=== PATIENT | female | born 2000 | race Caucasian/White ===

== ENCOUNTER 2021-01-02 18:04 | Emergency (ER) | payer OTHER, SELFPAY ==
--- NOTE | ~2021-01-02 | XR_ITS ---
XR chest 2V DATE: 01/02/2021 18:57 INDICATION: Midsternal chest pressure, shortness of breath TECHNIQUE: PA and lateral views COMPARISON: 09/15/2012 PA and lateral chest FINDINGS: Normal heart size. No hilar or mediastinal enlargement. No pulmonary infiltrate or consolidation, pleural effusion or pulmonary vascular congestion or pneumo thorax. Included skeletal structures are unremarkable. IMPRESSION: Negative chest Reviewed, dictated and finalized at location A. IMPRESSION: Negative chest
--- NOTE | ~2021-01-02 | CT_ITS ---
EXAMINATION: CTA chest PE protocol DATE: 01/02/2021 22:23 INDICATION: Shortness of breath TECHNIQUE: Computed tomography angiography (CTA) of the chest was performed with 100 mL Omnipaque-350 intravenous contrast timed to evaluate the pulmonary arteries. Coronal maximum intensity projection 3D-reconstructions were created by the technologist. Automated exposure control and iterative reconst ruction technique were employed. Exam dose: 143.68 mGy-cm total exam DLP. COMPARISON: 01/02/2021 2 view chest FINDINGS: There is diagnostic contrast enhancement of the pulmonary arteries and no evidence of pulmo nary embolism. No thoracic aortic aneurysm or dissection. No hilar or mediastinal mass lesion or lymphadenopathy. Normal heart size. No pericardial or pleural effusion. The lungs are clear of infiltrate or consolidation. Included skeletal structures are unremarkable. IMPRESSION: No evidence of pulmonary embolism Reviewed, dictated and finalized at [facility]. Reviewed, dictated and finalized at location A.
[2021-01-02 18:26] VITALS: BP 142/74; PULSE 112; RESP 18; TEMP 36.5; O2SAT 99
--- NOTE | 2021-01-02 18:26 | ECG_ITS ---
Measurements Intervals [place] Rate: 94 P: 76 [place]: 141 QRS: 72 QRSD: 84 T: 49 QT: 357 QTc: 447 Interpretive Statements SINUS RHYTHM WITH SINUS ARRHYTHMIA NORMAL ECG Electronically Signed On 01-02-2021 20:01:08 CDT by Brian Arshad D.O.
[2021-01-02 18:45] LABS: Basophils Absolute Auto 0.1 K/mm3 (0.0-0.1); Basophils Percent Auto 0.7 % (0.2-1.2); Eosinophils Absolute Auto 0.1 K/mm3 (0-0.3); Eosinophils Percent Auto 0.4 % (0-4.4); Hematocrit 39.5 % (37.0-47.0); Hemoglobin 13.4 g/dL (12.0-15.0); Immature Granulocyte Absolute 0.05 K/mm3 (0.00-0.031); Immature Granulocyte Percent A 0.4 % (0-0.5); Lymphocytes Absolute Auto 1.56 K/mm3 (0.9-3.2); Lymphocytes Percent Auto 11.6 % (18.3-44.2); Mean Corpuscular HGB Conc 33.9 g/dl (32-36); Mean Corpuscular Hemoglobin 28.8 pg (26-34); Mean Corpuscular Volume 84.9 fl (80-100); Mean Platelet Volume 9.6 fl (7.4-10.4); Monocytes Absolute Auto 0.8 K/mm3 (0.1-0.6); Monocytes Percent Auto 5.9 % (2.6-8.5); Neutrophils Absolute Auto 10.9 K/mm3 (1.3-6.7); Platelet Count Result 231 k/mm3 (150-375); Red Blood Count 4.65 M/mm3 (4.2-5.4); Red Cell Distribution Width 13.2 % (11.5-14.5); White Blood Count 13.5 K/mm3 (4.5-10.0)
[2021-01-02 19:04] LABS: Anion Gap 11 mmol/L (8-16); Blood Urea Nitrogen 15 mg/dL (8-21); Calcium 9.3 mg/dL (8.9-10.7); Carbon Dioxide 22 mmol/L (22-30); Chloride 104 mmol/L (98-107); Estimated CRCL calculation 63 ml/min; Estimated Glomerular Filt Rate > 60; Glucose 116 mg/dL (65-105); Potassium 3.6 mmol/L (3.4-5.0); Sodium 137 mmol/L (134-143)
[2021-01-02 20:26] VITALS: BP 120/77; PULSE 83; RESP 13; O2SAT 100
[2021-01-02 20:33] VITALS: O2SAT 99
--- NOTE | 2021-01-02 21:33 | ED.SOB ---
HPI - SOB/Dyspnea General Chief Complaint: Shortness of Breath/Dyspnea Stated Complaint: sob Time Seen by Provider: 01/02/21 20:14 History of Present Illness HPI Narrative: Patient is a 20-year-old female who presents ER with shortness of breath. Occurred around 4 in the afternoon. Lasted approximately 30 minutes. States she is just sitting in bed and felt like she could not breathe. She had no wheezing or cough. No fevers or chills or sweats. No pain with deep breath. She had no chest pain but thought she might of had some tightness and that her heart was racing. No lightheadedness or dizziness. Lower extremities without swelling and no recent travel or surgery. No symptoms at this time. No previous history of anxiety or anxiety attacks. No new stressors at home/work. Patient is having cramping of her calves bilaterally. Related Data Allergies Allergy/AdvReac Type Severity Reaction Status Date / Time No Known Allergies Allergy Mild Verified 01/08/08 17:17 Review of Systems Review of Systems: All systems reviewed & are unremarkable except as noted in HPI and below Constitutional: Constitutional: Denies chills, Denies fever(s) and Denies weakness ENT: Reports nasal congestion and Denies sore throat Cardiovascular: Cardiovascular: Reports chest pain, Reports rapid heart rate and Denies radiating jaw, neck or arm pain Respiratory: Respiratory: Denies cough, Reports dyspnea and Denies wheezing Gastrointestinal: Gastrointestinal: Denies abdominal pain, Denies diarrhea, Denies nausea and Denies vomiting Musculoskeletal: Musculoskeletal: Denies back pain and Denies muscle cramps PMFSH Past Medical History Medical History (Updated 01/02/21 @ 22:57 by Navdeep Yarbrough MD) Healthy female adult Surgical History Surgical History (Updated 01/02/21 @ 21:35 by Navdeep Yarbrough MD) No history of previous surgery Social History Social History (Updated 01/02/21 @ 21:35 by Navdeep Yarbrough MD) Smoking status: Never smoker Gender identity (if verbalized by the patient): Female Exam Narrative: Exam Narrative: GENERAL: Well-appearing, well-nourished, and in no acute distress. HEAD: Normocephalic, atraumatic.. ENT: Mucous membranes moist. CHEST: Clear to auscultation. No respiratory distress. HEART: Regular rate and rhythm. Normal peripheral pulses. ABDOMEN: Soft, nontender, nondistended. EXTREMITIES: Normal range of motion. No edema. Calf cramping. NEURO: Alert and oriented x3. PSYCH: Normal mood and affect. Course Course Emergency Course: Patient and family informed of results and treatment plan. Patient given one-time dose of Lovenox and will get a ultrasound 7:30 AM to rule out DVT in the lower extremities. Vital Signs Vital signs: Vital Signs Temperature 97.7 F 01/02/21 18:26 Pulse Rate 112 H 01/02/21 18:26 Respiratory Rate 18 01/02/21 18:26 Blood Pressure 142/74 H 01/02/21 18:26 Pulse Oximetry 99 01/02/21 18:26 Temperature 97.7 F 01/02/21 18:26 Pulse Rate 84 01/02/21 22:53 Respiratory Rate 20 01/02/21 22:53 Blood Pressure 127/73 01/02/21 22:53 Pulse Oximetry 94 01/02/21 22:53 MDM - SOB/Dyspnea Lab Data Result diagrams: 01/02/21 18:30 01/02/21 18:30 Labs: Lab Results 01/02/21 01/02/21 01/02/21 Range/Units 18:30 18:30 21:26 WBC 13.5 H (4.5-10.0) K/mm3 RBC 4.65 (4.2-5.4) M/mm3 Hgb 13.4 (12.0-15.0) g/dL Hct 39.5 (37.0-47.0) % MCV 84.9 (80-100) fl MCH 28.8 (26-34) pg MCHC 33.9 (32-36) g/dl RDW 13.2 (11.5-14.5) % Plt Count 231 (150-375) k/mm3 MPV 9.6 (7.4-10.4) fl Immature Gran % (Auto) 0.4 (0-0.5) % Neut % (Auto) 81.0 H (45.5-73.1) % Lymph % (Auto) 11.6 L (18.3-44.2) % [place] % (Auto) 5.9 (2.6-8.5) % Eos % (Auto) 0.4 (0-4.4) % Baso % (Auto) 0.7 (0.2-1.2) % Lymph # (Auto) 1.56 (0.9-3.2) K/mm3 [place] # (Auto) 0.8 H (0.1-0.6) K/mm
[2021-01-02 21:49] LABS: D Dimer 1.24 ug/mL (<0.48)
[2021-01-02 21:55] LABS: Troponin I < 0.012 ng/mL (0.000-0.034)
[2021-01-02 22:53] VITALS: BP 127/73; PULSE 84; RESP 20; O2SAT 94
[2021-01-02] MEDS: ENOXAPARIN 60 MG/0.6 ML SYRINGE SUB-Q (23:23)
[2021-01-02 23:29] VITALS: BP 115/60; RESP 14; O2SAT 100
== END 2021-01-02 23:28 | disposition home or self-care (01) ==
PROVIDERS: Emergency Medicine; Emergency Provider Emergency Medicine; PCP Pediatrics
DX: R06.02 Shortness of breath (principal); M79.662 Pain in left lower leg; M79.661 Pain in right lower leg
CPT/HCPCS: 36415; 71046; 71275; 80048; 84484; 85025; 85380; 93005; 96372; 99284; J1650; Q9967

== ENCOUNTER 2021-01-03 08:23 | Outpatient (CLI) | payer OTHER, SELFPAY ==
--- NOTE | ~2021-01-03 | US_ITS ---
EXAMINATION: US venous doppler [facility] DATE: 01/03/2021 09:09 INDICATION: Shortness of breath and chest pain TECHNIQUE: Oakes scale images without and with compression and Doppler images of the bilateral lower e xtremity veins were obtained. COMPARISON: None FINDINGS: The right common femoral vein, profunda femoral vein, femoral vein, popliteal vein, peroneal trunk, p osterior tibial veins, and greater saphenous vein are patent. The left common femoral vein, profunda femoral vein, femoral vein, popliteal vein, peroneal trunk, po sterior tibial veins, and greater saphenous vein are patent. IMPRESSION: 1. Patent bilateral lower extremity veins. No evidence of deep venous thrombosis. Reviewed, dictated and finalized at location B. IMPRESSION: 1. Patent bilateral lower extremity veins. No evidence of deep venous thrombosi s.
== END 2021-01-03 08:24 | disposition home or self-care (01) ==
PROVIDERS: PCP Pediatrics; Visit Provider Pediatrics
DX: M79.669 Pain in unspecified lower leg (principal); R79.89 Other specified abnormal findings of blood chemistry
CPT/HCPCS: 93970

== ENCOUNTER 2022-02-14 23:23 | Emergency (ER) | payer OTHER, SELFPAY ==
--- NOTE | ~2022-02-14 | XR_ITS ---
XR chest 2V DATE: 02/15/2022 02:14 INDICATION: Chest pain, shortness of breath TECHNIQUE: PA and lateral views COMPARISON: CT pulmonary scan 2 view chest FINDINGS: Normal heart size. No hilar or mediastinal enlargement. No pulmonary infiltrate or consolid ation, pleural effusion or pulmonary vascular congestion or pneumothorax. IMPRESSION: Negative chest Reviewed, dictated and finalized at location A. IMPRESSION: Negative chest
[2022-02-14 23:37] VITALS: BP 124/79; PULSE 80; RESP 18; TEMP 36.5; O2SAT 100
--- NOTE | 2022-02-15 00:38 | ED.DENTAL ---
HPI - Dental/Oral General Chief complaint: Dental/Oral Stated complaint: facial swelling & pain post wisdom tooth extractio Time Seen by Provider: 02/15/22 00:29 Source: patient Mode of arrival: ambulatory Limitations: no limitations History of Present Illness HPI Narrative: This is a 21 year old female that presents to the ER for pain and swelling s/p wisdom tooth extraction. Reports she had her wisdom teeth removed earlier this week. She had been taking [place] with little relief in her pain. She was then prescribed oxycodone, but has not taken this yet. Reports she took some [place] and ibuprofen tonight. She started to feel like she was having difficulty breathing. Her chest felt tight. She felt tingling all over her body. This prompted her to be seen in the ER. Reports symptoms have largely resolved now. Denies fevers. Related Data Home Medications Medication Instructions Recorded Confirmed etonogestrel 0.12 mg-ethinyl 1 vag ring vaginal ONCE 11/14/21 11/14/21 estradiol 0.015 mg/24 hr vaginal ring (NuvaRing) Allergies Allergy/AdvReac Type Severity Reaction Status Date / Time No Known Allergies Allergy Mild Verified 11/14/21 10:06 Review of Systems Review of Systems: CONSTITUTIONAL: Denies fever ENT: Reports dentalgia CARDIOVASCULAR: Reports chest pain RESPIRATORY: Reports dyspnea. All systems reviewed & are unremarkable except as noted in HPI and below PMFSH Past Medical History Medical History Healthy female adult Surgical History Surgical History No history of previous surgery Family History Family History Mother Asthma Skin cancer Father Depression Anxiety Grandparent Alcoholism Neurological disease Social History Social History Smoking status: Never smoker Second hand tobacco smoke exposure: No Alcohol intake: never Substance use: never Gender identity (if verbalized by the patient): Female Sexual Orientation (if Verbalized by the Patient): Straight or Heterosexual Spiritual care concerns: No Agree to blood products: Yes Exam Narrative: GENERAL: Well-appearing, well-nourished, and in no acute distress. HEAD: Normocephalic, atraumatic. EYES: EOMI. ENT: Nares clear, no rhinorrhea or epistaxis. Mucous membranes moist. Oropharynx without tonsillar hypertrophy exudate or other lesions. Moderate edema surrounding extraction sites without erythema. No trismus NECK: Supple. No adenopathy or masses. CHEST: Clear to auscultation. No respiratory distress. No wheezes rales or rhonchi HEART: Regular rate and rhythm. No murmur heard. Normal peripheral pulses. EXTREMITIES: Normal range of motion. No edema. SKIN: Warm, dry, no rash. NEURO: No focal deficits. Alert and oriented x3. PSYCH: Normal mood and affect Course Vital Signs Vital signs: Vital Signs Temperature 97.7 F 02/14/22 23:37 Pulse Rate 80 02/14/22 23:37 Respiratory Rate 18 02/14/22 23:37 Blood Pressure 124/79 02/14/22 23:37 Pulse Oximetry 100 02/14/22 23:37 Oxygen Delivery Room Air 02/14/22 23:37 Temperature 97.7 F 02/14/22 23:37 Pulse Rate 80 02/14/22 23:37 Respiratory Rate 18 02/14/22 23:37 Blood Pressure 124/79 02/14/22 23:37 Pulse Oximetry 100 02/14/22 23:37 Oxygen Delivery Room Air 02/14/22 23:37 MDM - Dental/Oral MDM Narrative Medical decision making narrative: Patient presents to the emergency department after having chest discomfort and feelings of difficulty breathing after taking her pain medication. Status post wisdom tooth extraction earlier this week. She does have some swelling of the areas. But no signs of infection. She is afebrile and nontoxic-appearing. Her vitals are stable. CBC and metabolic panel with
--- NOTE | 2022-02-15 00:57 | ECG_ITS ---
Measurements Intervals [place] Rate: 66 P: 66 [place]: 137 QRS: 66 QRSD: 86 T: 42 QT: 402 QTc: 422 Interpretive Statements SINUS RHYTHM WITH SINUS ARRHYTHMIA BASELINE ARTIFACT- I, III, AVR, AVL, AVF, V1-V4 NORMAL ECG Electronically Signed On 02-15-2022 7:06:31 CDT by Brian Arshad D.O.
[2022-02-15 01:13] LABS: Basophils Absolute Auto 0.1 K/mm3 (0.0-0.1); Basophils Percent Auto 0.8 % (0.2-1.2); Eosinophils Absolute Auto 0.1 K/mm3 (0-0.3); Eosinophils Percent Auto 0.9 % (0-4.4); Hematocrit 36.7 % (37.0-47.0); Hemoglobin 12.4 g/dL (12.0-15.0); Immature Granulocyte Absolute 0.02 K/mm3 (0.00-0.031); Immature Granulocyte Percent A 0.3 % (0-0.5); Lymphocytes Absolute Auto 1.88 K/mm3 (0.9-3.2); Lymphocytes Percent Auto 29.4 % (18.3-44.2); Mean Corpuscular HGB Conc 33.8 g/dl (32-36); Mean Corpuscular Volume 85.7 fl (80-100); Mean Platelet Volume 10.1 fl (7.4-10.4); Monocytes Absolute Auto 0.4 K/mm3 (0.1-0.6); Monocytes Percent Auto 6.7 % (2.6-8.5); Neutrophils Percent Auto 61.9 % (45.5-73.1); Platelet Count Result 212 k/mm3 (150-375); Red Blood Count 4.28 M/mm3 (4.2-5.4); Red Cell Distribution Width 12.3 % (11.5-14.5); White Blood Count 6.4 K/mm3 (4.5-10.0)
[2022-02-15 01:22] LABS: Alanine Aminotransferase 12 U/L (6-35); Albumin Level 3.9 g/dL (3.5-5.1); Alkaline Phosphatase 60 U/L (38-126); Anion Gap 6 mmol/L (8-16); Aspartate Amino Transferase 21 U/L (14-36); Bilirubin,Total 0.2 mg/dL (0.2-1.3); Blood Urea Nitrogen 9 mg/dL (7-17); Calcium 9.1 mg/dL (8.4-10.2); Carbon Dioxide 26 mmol/L (22-30); Chloride 105 mmol/L (98-107); Estimated CRCL calculation 77 ml/min; Estimated Glomerular Filt Rate > 60; Glucose 93 mg/dL (65-110); Potassium 4.3 mmol/L (3.4-5.0); Sodium 137 mmol/L (137-145)
[2022-02-15 01:34] LABS: Troponin I < 0.012 ng/mL (0.000-0.034)
[2022-02-15] MEDS: SODIUM CHLORIDE 0.9% IV 1,000 ML 999 ML IV CONT (01:40)
[2022-02-15 03:23] VITALS: BP 112/68; PULSE 64; RESP 18; O2SAT 100
== END 2022-02-15 03:22 | disposition home or self-care (01) ==
PROVIDERS: Physician Assistant; Emergency Provider Emergency Medicine; PCP Family Medicine
DX: R07.9 Chest pain, unspecified (principal); K08.89 Other specified disorders of teeth and supporting structures
CPT/HCPCS: 36415; 71046; 80053; 84484; 85025; 93005; 96361; 96365; 99284; J0131; J7030